=== PATIENT | female | born 1980 | race Caucasian/White ===

== ENCOUNTER 2019-03-30 20:38 | Emergency (ER) | payer BC ==
[~2019-03-30] VITALS: Ht 157.5 cm; Wt 89.8 kg
[2019-03-30 20:41] VITALS: BP 174/104; Ht 157.5 cm; Wt 89.8 kg
== END 2019-03-30 22:30 | disposition home or self-care (01) ==
LOC: ED 20:38
DX: S86.911A Strain of unspecified muscle(s) and tendon(s) at lower leg level, right leg, initial encounter (principal); I10 Essential (primary) hypertension; Z88.0 Allergy status to penicillin; W01.0XXA Fall on same level from slipping, tripping and stumbling without subsequent striking against object, initial encounter; Y93.89 Activity, other specified; Y92.89 Other specified places as the place of occurrence of the external cause; Y99.8 Other external cause status
CPT/HCPCS: J1885